=== PATIENT | female | born 1980 ===

== ENCOUNTER 2016-06-29 21:47 | Emergency (ER) | payer OTHER, MEDICAID ==
[2016-06-30] MEDS ORDERED: HYDROCODONE/ACETAMINOPHEN 5/325MG TABLET ONE (00:23)
[2016-06-30] MEDS ORDERED: AZITHROMYCIN 250 MG TABLET ONE (01:46)
--- NOTE | 2016-06-30 08:21 | RAD ---
CHEST 2 VIEWS HISTORY: Right-sided chest pain and cough. Frontal and lateral chest radiographs dated 06/30/2016. COMPARISON: None. FINDINGS: LUNG VOLUMES: Diminished. FOCAL AIRSPACE OPACITY: Right basilar airspace opacity. PLEURAL EFFUSION: Small right pleural effusion. CARDIOMEDIASTINAL SILHOUETTE: Nonenlarged. PNEUMOTHORAX: None identified. OSSEOUS STRUCTURES: No grossly destructive lesions. IMPRESSION: Findings suspicious for right lower lobe pneumonia. Recommend short-term follow-up imaging to ensure resolution.
== END 2016-06-30 02:03 | disposition home or self-care (01) ==
LOC: ED 21:47
DX: J18.9 Pneumonia, unspecified organism (principal)
CPT/HCPCS: 71020; 99283 ×2; A9270 ×2